=== PATIENT | male | born 1990 | race Two or more races ===

== ENCOUNTER 2020-07-22 20:53 | Emergency (ER) | payer BC, OTHER ==
[~2020-07-22] VITALS: Ht 188 cm; Wt 100.7 kg
--- NOTE | 2020-07-22 21:39 | NUR ---
pt having abdominal pain and nausea, and headache for about 4 days. pt states no vomiting, and 10/10 epigastric pain. pt states taking laxitive earlier today as well. pt resting in gurney, guarded movement, placed on pulse ox and bp cuff, awaiting erp eval
[2020-07-22] MEDS ORDERED: SODIUM CHLORIDE FLUSH 10ML SYR IVF ONE (23:00)
[2020-07-22] MEDS ORDERED: ONDANSETRON 2MG/ML, 2ML IVPush ONE (23:00)
[2020-07-22 23:03] LABS: BASOPHILS % (AUTO) 1 % (0-1); EOSINOPHILS % (AUTO) 2 % (1-7); LYMPHOCYTES % (AUTO) 10 % (22-44); MEAN CORPUSCULAR HEMOGLOBIN 30.4 pg (27.5-34.5); MEAN CORPUSCULAR HGB CONC 34.9 g/dL (33.2-36.2); MEAN PLATELET VOLUME 8.4 fL (7.4-10.4); MONOCYTES % (AUTO) 7 % (2-9); NEUTROPHILS % (AUTO) 81 % (42-75); PLATELET COUNT 262 x10^3/uL (130-400); RED BLOOD COUNT 5.09 x10^6/uL (4.38-5.82); RED CELL DISTRIBUTION WIDTH 12.9 % (9.4-14.8)
[2020-07-22 23:06] LABS: MD NO
[2020-07-22] MEDS ORDERED: MORPHINE SULFATE 4 MG/ML, 1ML ONE (23:06)
[2020-07-22] MEDS ORDERED: ONDANSETRON 2MG/ML, 2ML ONE (23:06)
[2020-07-22 23:10] LABS: ALANINE AMINOTRANSFERASE 125 U/L (12-78); ALBUMIN 3.9 g/dL (3.4-5.0); ANION GAP 5 mmol/L (5-15); CHLORIDE 105 mmol/L (98-107); CREATININE 1.12 mg/dL (0.7-1.3)
[2020-07-22 23:13] LABS: ALKALINE PHOSPHATASE 104 U/L (45-117); BILIRUBIN,TOTAL 0.6 mg/dL (0.2-1.0)
[2020-07-22] MEDS: MORPHINE SULFATE 4 MG/ML, 1ML IVPush PRN (23:13)
[2020-07-22 23:15] LABS: MICROSCOPIC NOT IND
[2020-07-23] MEDS ORDERED: MORPHINE SULFATE 4 MG/ML, 1ML ONE (00:02)
[2020-07-23] MEDS: MORPHINE SULFATE 4 MG/ML, 1ML IVPush PRN (00:08)
--- NOTE | 2020-07-23 00:15 | NUR ---
PT STILL HAVIING 7-10 ABDOMINAL PAIN. PT GIVEN LAST MORPHINE DOSE. PT ON ALL MONITORS AND CALL LIGHT WITHIN REACH
[2020-07-23] MEDS ORDERED: SODIUM CHLORIDE FLUSH 10ML SYR IVF ONE (01:30)
[2020-07-23] MEDS ORDERED: SODIUM CHLORIDE 0.9% 1,000ML IVBOLUS ONE (01:30)
--- NOTE | 2020-07-23 01:34 | NUR ---
BREAK RN: PT RESTING IN ROOM. NO ACUTE DISTRESS NOTED. CALL LIGHT IN PLACE. WILL CONITNUE TO MONITOR WHILE PRIMARY RN IS ON BREAK.
--- NOTE | 2020-07-23 02:01 | NUR ---
BREAK RN: REPORT GIVEN TO ARJUN GONZALEZ
[2020-07-23 02:40] VITALS: BP 125/61
== END 2020-07-23 02:52 | disposition home or self-care (01) ==
LOC: ED 07-23 00:08
DX: A09 Infectious gastroenteritis and colitis, unspecified (principal); I88.0 Nonspecific mesenteric lymphadenitis; Z20.822 Contact with and (suspected) exposure to COVID-19; R94.31 Abnormal electrocardiogram [ECG] [EKG]
CPT/HCPCS: 36415; 74177; 80053; 81003; 85025; 87635; 93005; 96361; 96374; 96375; 96376; 99285; J2270; J2405; J7030